=== PATIENT | female | born 1980 | race Caucasian/White ===

== ENCOUNTER 2017-09-21 12:10 | Emergency (ER) | payer BC ==
[2017-09-21] MEDS ORDERED: SODIUM CHLORIDE 0.9% 500 ML IV ONE (12:54)
--- NOTE | 2017-09-21 12:59 | ED ---
General Adult HPI - General Chief complaint: Recheck/Abnormal Lab/Rx Stated complaint: dizziness, chest pain, sob, Hx anemia Time Seen by Provider: 09/21/17 12:36 Source: patient Mode of arrival: wheelchair Limitations: no limitations - History of Present Illness Initial comments: Patient is a 37 year old female with a history of heavy, irregular menstrual periods who presents with a chief complaint of dizziness and anemia. Patient states that she has a hemoglobin that is usually around 7 secondary to chronic anemia from heavy periods. Patient states that she is currently on day 5 of her period and this has been particularly heavy. The patient states that she felt dizzy and lightheaded this morning. She is tachycardic at baseline however she states that at home she was about 138 bpm. Patient denies any other symptoms at this time and is concerned that her blood count might be low. - Related Data Home Medications Medication Instructions Recorded Confirmed Cholecalciferol [Vitamin D3] 1,000 unit PO DAILY 09/21/17 09/21/17 L.acidoph,Paracasei, B.lactis 1 cap PO DAILY 09/21/17 09/21/17 [Probiotic] Multivitamins, Thera [Multivitamin 1 tab PO DAILY 09/21/17 09/21/17 (formulary)] Ondansetron HCl [Zofran] 4 mg PO Q8H PRN 09/21/17 09/21/17 Thyroid Supplement 1 tab PO DAILY 09/21/17 09/21/17 Allergies Allergy/AdvReac Type Severity Reaction Status Date / Time levofloxacin [From Levaquin] AdvReac Nausea & Verified 09/21/17 13:17 Vomiting fruit Allergy Unknown Uncoded 09/21/17 13:17 grains Allergy Unknown Uncoded 09/21/17 13:17 sugar Allergy Unknown Uncoded 09/21/17 13:17 Review of Systems ROS Statement: Those systems with pertinent positive or pertinent negative responses have been documented in the HPI. ROS Other: All systems not noted in ROS Statement are negative. Constitutional: Reports: weakness Hematological/Lymphatic: Reports: as per HPI Past Medical History Past Medical History: Thyroid Disorder Additional Past Medical History / Comment(s): Chronic anemia due to fibroids History of Any Multi-Drug Resistant Organisms: None Reported Past Surgical History: Section Past Psychological History: No Psychological Hx Reported Smoking Status: Never smoker Past Alcohol Use History: None Reported Past Drug Use History: None Reported General Exam Limitations: no limitations General appearance: alert, in no apparent distress Head exam: Present: atraumatic, normocephalic Eye exam: Present: other (conjuntival pallor ) ENT exam: Present: mucous membranes moist, other (mucous membrains appear pale ) Neck exam: Present: normal inspection Respiratory exam: Present: normal lung sounds bilaterally. Absent: respiratory distress, wheezes Cardiovascular Exam: Present: normal rhythm, tachycardia GI/Abdominal exam: Present: soft. Absent: distended, tenderness Rectal exam: Present: deferred Extremities exam: Present: normal inspection Back exam: Present: normal inspection Neurological exam: Present: alert, oriented X3 Psychiatric exam: Present: normal affect, normal mood Skin exam: Present: warm, dry, intact, pallor Course Vital Signs 09/21/17 09/21/17 09/21/17 12:29 13:22 14:25 Temperature 99.3 F 98.4 F Pulse Rate 110 H 103 H 97 Respiratory 20 18 18 Rate Blood Pressure 137/70 124/64 117/68 O2 Sat by Pulse 97 100 100 Oximetry 09/21/17 09/21/17 09/21/17 14:44 14:54 15:24 Temperature 97.8 F 98.1 F 98.0 F Pulse Rate 91 82 88 Respiratory 18 18 18 Rate Blood Pressure 115/67 115/59 112/65 O2 Sat by Pulse 100 100 100 Oximetry 09/21/17 09/21/17 09/21/17 16:50 16:56 17:06 Temperature 98.5 F 98.5 F 98.4 F Pulse Rate 92 90 81 Respiratory 18 18 18 Rate Blood Pressure 107/55 106/56 105/56 O2 Sat by Pulse 100 99 Oximetry 09/21/17 09/21/17 17:36 19:15 Temperature 98.2 F 98.2 F Pulse Rate 79 89 Respiratory 18 18 Rate Blood Pressure 101/57 110/57 O2 Sat by Pulse 100 Oximetry Medical Decision Making - Medical Decision Making Patient presents with a chief complaint of dizziness and lightheadedness. She has a history of anemia. Initial evaluation shows tachycardia with otherwise stable vital signs. Patient appears very pale. Patient will be evaluated with basic labs, type and screen. Patient given 500 mL of fluid. I discussed the possibility of a blood transfusion with the patient. She is agreeable with needed. EKG performed at 1313 shows normal sinus rhythm with a rate of 100 bpm. EKG is otherwise unremarkable. Lab evaluation preliminarily shows a hemoglobin of 6.8 though I believe this to be lower as patient is having active vaginal bleeding. I discussed transfusion with the patient again, she is agreeable. Wrists and benefits were discussed. Patient will be given 2 units of packed red blood cells. 4:10 PM Patient re-evaluated after initial unit of PRBC's, patient appears well and is feeling better. her color is improved. will continue to monitor. 7:55 PM Patient reevaluated she states that she is feeling better. Repeat hemoglobin is 8.7. At this time, patient is stable for discharge. She is instructed to follow up with primary care and [employer] [employer] in 1-2 days. Return to the emergency department if symptoms worsen or change. - Lab Data Result diagrams: 09/21/17 19:20 09/21/17 13:10 Lab Results 09/21/17 09/21/17 09/21/17 Range/Units 13:10 13:10 13:10 WBC 4.7 (3.8-10.6) k/uL RBC 3.70 L (3.80-5.40) m/uL Hgb 6.8 L* (11.4-16.0) gm/dL Hct 24.8 L (34.0-46.0) % MCV 67.0 L (80.0-100.0) fL MCH 18.4 L (25.0-35.0) pg MCHC 27.5 L (31.0-37.0) g/dL RDW 16.1 H (11.5-15.5) % Plt Count 152 (150-450) k/uL Neutrophils % 82 % Lymphocytes % 13 % Monocytes % 3 % Eosinophils % 0 % Basophils % 0 % Neutrophils # 3.9 (1.3-7.7) k/uL Lymphocytes # 0.6 L (1.0-4.8) k/uL Monocytes # 0.1 (0-1.0) k/uL Eosinophils # 0.0 (0-0.7) k/uL Basophils # 0.0 (0-0.2) k/uL Hypochromasia Marked Poikilocytosis Slight Anisocytosis Slight Microcytosis Marked Sodium 143 (137-145) mmol/L Potassium 3.9 (3.5-5.1) mmol/L Chloride 104 (98-107) mmol/L Carbon Dioxide 22 (22-30) mmol/L Anion Gap 17 mmol/L BUN 9 (7-17) mg/dL Creatinine 0.36 L (0.52-1.04) mg/dL Est GFR (CKD-EPI)AfAm >90 (>60 ml/min/1.73 sqM) Est GFR (CKD-EPI)NonAf >90 (>60 ml/min/1.73 sqM) Glucose 85 (74-99) mg/dL Calcium 8.9 (8.4-10.2) mg/dL Blood Type O Positive Blood Type Recheck No Antibody Screen NEGATIVE Crossmatch See Detail Spec Expiration Date 09/24/2017 - 230909/21/17 Range/Units 19:20 WBC 5.6 (3.8-10.6) k/uL RBC 4.21 (3.80-5.40) m/uL Hgb 8.7 L D (11.4-16.0) gm/dL Hct 29.7 L (34.0-46.0) % MCV 70.7 L (80.0-100.0) fL MCH 20.8 L (25.0-35.0) pg MCHC 29.4 L (31.0-37.0) g/dL RDW 18.3 H (11.5-15.5) % Plt Count 140 L (150-450) k/uL Neutrophils % 74 % Lymphocytes % 20 % Monocytes % 4 % Eosinophils % 0 % Basophils % 1 % Neutrophils # 4.2 (1.3-7.7) k/uL Lymphocytes # 1.1 (1.0-4.8) k/uL Monocytes # 0.2 (0-1.0) k/uL Eosinophils # 0.0 (0-0.7) k/uL Basophils # 0.0 (0-0.2) k/uL Hypochromasia Marked Poikilocytosis Marked Anisocytosis Slight Microcytosis Marked Sodium (137-145) mmol/L Potassium (3.5-5.1) mmol/L Chloride (98-107) mmol/L Carbon Dioxide (22-30) mmol/L Anion Gap mmol/L BUN (7-17) mg/dL Creatinine (0.52-1.04) mg/dL Est GFR (CKD-EPI)AfAm (>60 ml/min/1.73 sqM) Est GFR (CKD-EPI)NonAf (>60 ml/min/1.73 sqM) Glucose (74-99) mg/dL Calcium (8.4-10.2) mg/dL Blood Type Blood Type Recheck Antibody Screen Crossmatch Spec Expiration Date Disposition Clinical Impression: Anemia, Menorrhagia with irregular cycle Disposition: HOME SELF-CARE Condition: Good Is patient prescribed a controlled substance at d/c from ED?: No Referrals: Nonstaff,Physician [REFERRING] - 1-2 days Mady Hutchins MD [STAFF PHYSICIAN] - 1-2 days
[2017-09-21 13:25] LABS: Anisocytosis Slight; Basophils % (A) 0 %; Eosinophils % (A) 0 %; HCT 24.8 % (34.0-46.0); Hypochromasia Marked; Lymphocytes # (A) 0.6 k/uL (1.0-4.8); Lymphocytes % (A) 13 %; MCH 18.4 pg (25.0-35.0); MCHC 27.5 g/dL (31.0-37.0); Mean Platelet Volume 9.1; Microcytosis Marked; Monocytes # (A) 0.1 k/uL (0-1.0); Monocytes % (A) 3 %; Neutrophils # (A) 3.9 k/uL (1.3-7.7); Neutrophils % (A) 82 %; Platelet Count 152 k/uL (150-450); Poikilocytosis Slight; RDW 16.1 % (11.5-15.5); WBC 4.7 k/uL (3.8-10.6)
[2017-09-21 13:28] LABS: HGB 6.8 gm/dL (11.4-16.0)
[2017-09-21 13:32] VITALS: RESP 18
[2017-09-21 13:36] LABS: Anion Gap 17 mmol/L; Blood Urea Nitrogen 9 mg/dL (7-17); Calcium 8.9 mg/dL (8.4-10.2); Carbon Dioxide 22 mmol/L (22-30); Chloride 104 mmol/L (98-107); Glucose 85 mg/dL (74-99); Potassium 3.9 mmol/L (3.5-5.1); Sodium 143 mmol/L (137-145)
[2017-09-21 18:19] VITALS: TEMP 98.2
[2017-09-21 19:32] LABS: Anisocytosis Slight; Basophils % (A) 1 %; Eosinophils % (A) 0 %; HCT 29.7 % (34.0-46.0); Hypochromasia Marked; Lymphocytes # (A) 1.1 k/uL (1.0-4.8); Lymphocytes % (A) 20 %; MCH 20.8 pg (25.0-35.0); MCHC 29.4 g/dL (31.0-37.0); MCV 70.7 fL (80.0-100.0); Mean Platelet Volume 9.6; Microcytosis Marked; Monocytes # (A) 0.2 k/uL (0-1.0); Monocytes % (A) 4 %; Neutrophils # (A) 4.2 k/uL (1.3-7.7); Neutrophils % (A) 74 %; Platelet Count 140 k/uL (150-450); Poikilocytosis Marked; RBC 4.21 m/uL (3.80-5.40); RDW 18.3 % (11.5-15.5); WBC 5.6 k/uL (3.8-10.6)
[2017-09-21 19:38] LABS: HGB 8.7 gm/dL (11.4-16.0)
[2017-09-21 20:21] VITALS: BP 104/72; PULSE 72
== END 2017-09-21 20:21 | disposition home or self-care (01) ==
LOC: EC 12:10
DX: D64.9 Anemia, unspecified (principal); N92.1 Excessive and frequent menstruation with irregular cycle; E07.9 Disorder of thyroid, unspecified; Z79.899 Other long term (current) drug therapy; Z88.1 Allergy status to other antibiotic agents; Z91.018 Allergy to other foods
CPT/HCPCS: 99285; 36415; 93005; 86900; 86901; 80048; 85025; 86850; 86920; P9016

== ENCOUNTER 2017-10-12 16:50 | Emergency (ER) | payer BC ==
[2017-10-12 17:17] VITALS: RESP 18
[2017-10-12] MEDS ORDERED: SODIUM CHLORIDE 0.9% 1,000 ML IV ONE (17:39)
--- NOTE | 2017-10-12 17:44 | ED ---
Female Urogenital HPI - General Chief complaint: Vaginal Bleeding Stated complaint: Vaginal Bleeding Time Seen by Provider: 10/12/17 17:24 Source: patient, RN notes reviewed, old records reviewed Mode of arrival: ambulatory Limitations: no limitations - History of Present Illness Initial comments: 37-year-old female presents emergency Department chief complaint of heavy vaginal bleeding for the past 2 hours. She has a history of menorrhagia. She is a G5 female. Her BIOLOGY SPECIALIST is Dr. Edwards, after her last heavy menstrual cycle she was started on progesterone. Patient states that she's been taking over the past month. Patient states that she was seen in the emergency department 3 weeks ago for similar complaints having heavy bleeding. She was tired and fatigue that time she did receive 2 units of PRBCs. Patient states that she's been passing clots the size of her fist for the past 2 hours. Patient denies any recent fever, chills, chest pain, back pain, abdominal pain, nausea vomiting, numbness or tingling, dysuria or hematuria, constipation or diarrhea, headaches or visual changes, or any other current symptoms. - Related Data Home Medications Medication Instructions Recorded Confirmed L.acidoph,Paracasei, B.lactis 1 cap PO DAILY 09/21/17 10/12/17 [Probiotic] Multivitamins, Thera [Multivitamin 1 tab PO DAILY 09/21/17 10/12/17 (formulary)] Ferrous Sulfate [Feosol] 325 mg PO DAILY 10/12/17 10/12/17 Iodine Drops 1 dose PO DAILY 10/12/17 10/12/17 Vitamin D3 Drops 1 dose PO DAILY 10/12/17 10/12/17 Allergies Allergy/AdvReac Type Severity Reaction Status Date / Time levofloxacin [From Levaquin] AdvReac Nausea & Verified 10/12/17 19:21 Vomiting fruit Allergy Unknown Uncoded 10/12/17 17:17 grains Allergy Unknown Uncoded 10/12/17 17:17 sugar Allergy Unknown Uncoded 10/12/17 17:17 Review of Systems ROS Statement: Those systems with pertinent positive or pertinent negative responses have been documented in the HPI. ROS Other: All systems not noted in ROS Statement are negative. Past Medical History Past Medical History: Thyroid Disorder Additional Past Medical History / Comment(s): Chronic anemia due to fibroids History of Any Multi-Drug Resistant Organisms: None Reported Past Surgical History: Section Past Psychological History: No Psychological Hx Reported Smoking Status: Never smoker Past Alcohol Use History: None Reported Past Drug Use History: None Reported General Exam - General Exam Comments Initial Comments: This patient's a 37-year-old female. Alert and oriented. No significant distress. Mildy pale. Limitations: no limitations General appearance: alert, in no apparent distress Head exam: Present: atraumatic, normocephalic, normal inspection Eye exam: Present: normal appearance, PERRL, EOMI. Absent: scleral icterus, conjunctival injection, periorbital swelling ENT exam: Present: normal exam, mucous membranes moist Neck exam: Present: normal inspection. Absent: tenderness, meningismus, lymphadenopathy Respiratory exam: Present: normal lung sounds bilaterally. Absent: respiratory distress, wheezes, rales, rhonchi, stridor Cardiovascular Exam: Present: regular rate, normal rhythm, normal heart sounds. Absent: systolic murmur, diastolic murmur, rubs, gallop, clicks GI/Abdominal exam: Present: soft, normal bowel sounds. Absent: distended, tenderness, guarding, rebound, rigid Extremities exam: Present: normal inspection, full ROM, normal capillary refill. Absent: tenderness, pedal edema, joint swelling, calf tenderness Back exam: Present: normal inspection Neurological exam: Present: alert, oriented X3, CN II-XII intact Psychiatric exam: Present: normal affect, normal mood Skin exam: Present: warm, dry, intact, normal color. Absent: rash Course Vital Signs 10/12/17 10/12/17 10/12/17 17:14 19:21 20:10 Temperature 99.4 F 98.0 F Pulse Rate 93 87 88 Respiratory 18 18 18 Rate Blood Pressure 128/82 134/78 115/69 O2 Sat by Pulse 100 98 100 Oximetry Medical Decision Making - Medical Decision Making 37-year-old female presents emergency Department chief complaint of heavy vaginal bleeding for the past 2 hours. She has a history of menorrhagia. She is a G5 female. Patient states that she's been passing clots the size of her fist for the past 2 hours. At this time Hgb is 9.8, an increase from previous Hcg of 8.5. She is actively bleeding and this may go down significantly. US shows evidence of uterine fibroid. I discussed that patient does not need a transfusion at this time, however she needs to recheck CBC in a few days to ensure Hgb is stable. Patient agrees to treatment plan and will comply. - Lab Data Result diagrams: 10/12/17 18:15 10/12/17 18:15 Lab Results 10/12/17 10/12/17 10/12/17 Range/Units 18:15 18:15 18:15 WBC 4.8 (3.8-10.6) k/uL RBC 4.66 (3.80-5.40) m/uL Hgb 9.8 L (11.4-16.0) gm/dL Hct 32.7 L (34.0-46.0) % MCV 70.1 L (80.0-100.0) fL MCH 21.0 L (25.0-35.0) pg MCHC 29.9 L (31.0-37.0) g/dL RDW 19.7 H (11.5-15.5) % Plt Count 237 (150-450) k/uL Neutrophils % 72 % Lymphocytes % 19 % Monocytes % 6 % Eosinophils % 0 % Basophils % 1 % Neutrophils # 3.5 (1.3-7.7) k/uL Lymphocytes # 0.9 L (1.0-4.8) k/uL Monocytes # 0.3 (0-1.0) k/uL Eosinophils # 0.0 (0-0.7) k/uL Basophils # 0.0 (0-0.2) k/uL Hypochromasia Marked Poikilocytosis Slight Anisocytosis Slight Microcytosis Marked PT (9.0-12.0) sec INR (<1.2) APTT (22.0-30.0) sec Sodium 144 (137-145) mmol/L Potassium 3.6 (3.5-5.1) mmol/L Chloride 105 (98-107) mmol/L Carbon Dioxide 23 (22-30) mmol/L Anion Gap 16 mmol/L BUN 6 L (7-17) mg/dL Creatinine 0.40 L (0.52-1.04) mg/dL Est GFR (CKD-EPI)AfAm >90 (>60 ml/min/1.73 sqM) Est GFR (CKD-EPI)NonAf >90 (>60 ml/min/1.73 sqM) Glucose 102 H (74-99) mg/dL Calcium 9.7 (8.4-10.2) mg/dL Total Bilirubin 0.3 (0.2-1.3) mg/dL AST 24 (14-36) U/L ALT 33 (9-52) U/L Alkaline Phosphatase 45 (38-126) U/L Total Protein 7.2 (6.3-8.2) g/dL Albumin 4.8 (3.5-5.0) g/dL Urine HCG, Qual Not Detected (Not Detectd) Blood Type Blood Type Recheck Antibody Screen Spec Expiration Date 10/12/17 10/12/17 Range/Units 18:15 18:15 WBC (3.8-10.6) k/uL RBC (3.80-5.40) m/uL Hgb (11.4-16.0) gm/dL Hct (34.0-46.0) % MCV (80.0-100.0) fL MCH (25.0-35.0) pg MCHC (31.0-37.0) g/dL RDW (11.5-15.5) % Plt Count (150-450) k/uL Neutrophils % % Lymphocytes % % Monocytes % % Eosinophils % % Basophils % % Neutrophils # (1.3-7.7) k/uL Lymphocytes # (1.0-4.8) k/uL Monocytes # (0-1.0) k/uL Eosinophils # (0-0.7) k/uL Basophils # (0-0.2) k/uL Hypochromasia Poikilocytosis Anisocytosis Microcytosis PT 10.1 (9.0-12.0) sec INR 1.0 (<1.2) APTT 24.0 (22.0-30.0) sec Sodium (137-145) mmol/L Potassium (3.5-5.1) mmol/L Chloride (98-107) mmol/L Carbon Dioxide (22-30) mmol/L Anion Gap mmol/L BUN (7-17) mg/dL Creatinine (0.52-1.04) mg/dL Est GFR (CKD-EPI)AfAm (>60 ml/min/1.73 sqM) Est GFR (CKD-EPI)NonAf (>60 ml/min/1.73 sqM) Glucose (74-99) mg/dL Calcium (8.4-10.2) mg/dL Total Bilirubin (0.2-1.3) mg/dL AST (14-36) U/L ALT (9-52) U/L Alkaline Phosphatase (38-126) U/L Total Protein (6.3-8.2) g/dL Albumin (3.5-5.0) g/dL Urine HCG, Qual (Not Detectd) Blood Type O Positive Blood Type Recheck No Antibody Screen NEGATIVE Spec Expiration Date 10/15/2017 - 2315 - Radiology Data Radiology results: report reviewed US is positiev for Uterine fibroid. No evidence of ovarian torsion or mass. Disposition Clinical Impression: Menorrhagia with irregular cycle Disposition: HOME SELF-CARE Condition: Good Instructions: Menorrhagia (ED) Additional Instructions: Patient advised to repeat your CBC within the next couple of days. Return to the emergency department if any alarming signs or symptoms occur. Is patient prescribed a controlled substance at d/c from ED?: No When asked, does pt state using other controlled substances?: No If prescribed controlled substance>3 days was MAPS reviewed?: No If opioid is for acute pain is fill amount 7 days or less?: No If Rx opioid, was Start Talking consent form obtained?: No Referrals: Yanna Crane MD [Primary Care Provider] - 1-2 days Time of Disposition: 20:06
[2017-10-12 18:28] LABS: Anisocytosis Slight; Basophils % (A) 1 %; Eosinophils % (A) 0 %; HCT 32.7 % (34.0-46.0); HGB 9.8 gm/dL (11.4-16.0); Hypochromasia Marked; Lymphocytes # (A) 0.9 k/uL (1.0-4.8); Lymphocytes % (A) 19 %; MCHC 29.9 g/dL (31.0-37.0); MCV 70.1 fL (80.0-100.0); Mean Platelet Volume 8.6; Microcytosis Marked; Monocytes # (A) 0.3 k/uL (0-1.0); Monocytes % (A) 6 %; Neutrophils # (A) 3.5 k/uL (1.3-7.7); Neutrophils % (A) 72 %; Platelet Count 237 k/uL (150-450); Poikilocytosis Slight; RBC 4.66 m/uL (3.80-5.40); RDW 19.7 % (11.5-15.5); WBC 4.8 k/uL (3.8-10.6)
[2017-10-12 18:36] LABS: Prothrombin Time 10.1 sec (9.0-12.0)
[2017-10-12 18:37] LABS: ALT 33 U/L (9-52); AST 24 U/L (14-36); Albumin 4.8 g/dL (3.5-5.0); Alkaline Phosphatase 45 U/L (38-126); Anion Gap 16 mmol/L; Blood Urea Nitrogen 6 mg/dL (7-17); Calcium 9.7 mg/dL (8.4-10.2); Carbon Dioxide 23 mmol/L (22-30); Chloride 105 mmol/L (98-107); Glucose 102 mg/dL (74-99); Potassium 3.6 mmol/L (3.5-5.1); Sodium 144 mmol/L (137-145); Total Bilirubin 0.3 mg/dL (0.2-1.3); Total Protein 7.2 g/dL (6.3-8.2)
--- NOTE | 2017-10-12 19:42 | US ---
EXAMINATION TYPE: US transvaginal DATE OF EXAM: 10/12/2017 COMPARISON: NONE CLINICAL HISTORY: Pain. Heavy bleeding TECHNIQUE: Transvaginal (TV). EXAM MEASUREMENTS: Uterus: 10.5 x 6.7 x 6.8 cm Endometrial Stripe: 1.2 cm 1. Uterus: Anteverted Fibroid seen measuring 4.5 x 4.8 x 4.6 cm 2. Endometrium: wnl 3. Right Ovary: Obscured by overlying bowel gas 4. Left Ovary: Obscured by overlying bowel gas 5. Bilateral Adnexa: wnl 6. Posterior cul-de-sac: wnl Fibroid seen measuring 4.5 x 4.8 x 4.6 cm. IMPRESSION: 1. Uterine fibroid
[2017-10-12 20:11] VITALS: BP 115/69; PULSE 88; TEMP 98
== END 2017-10-12 20:19 | disposition home or self-care (01) ==
LOC: EC 16:50
DX: N92.0 Excessive and frequent menstruation with regular cycle (principal); D64.9 Anemia, unspecified; Z87.42 Personal history of other diseases of the female genital tract; Z79.899 Other long term (current) drug therapy; Z91.018 Allergy to other foods; Z88.1 Allergy status to other antibiotic agents
CPT/HCPCS: 36415; 76830; 80053; 81025; 85025; 85610; 85730; 86850; 86900; 86901; 96360; 99284

== ENCOUNTER 2018-01-08 15:39 | Emergency (ER) | payer BC ==
[2018-01-08 15:57] VITALS: RESP 18
[2018-01-08] MEDS ORDERED: SODIUM CHLORIDE 0.9% 1,000 ML IV STA ×2 (16:40→18:14)
--- NOTE | 2018-01-08 16:43 | ED ---
General Adult HPI - General Chief complaint: Abdominal Pain Stated complaint: panic attack Time Seen by Provider: 01/08/18 16:26 Source: patient, RN notes reviewed Mode of arrival: wheelchair Limitations: no limitations - History of Present Illness Initial comments: Patient is a 37-year-old female status post hysterectomy 8 weeks, presented to the emergency room today with multiple complaints. Patient does admit that she uses not feeling right over the last 2 weeks. She states that she's noticed some difficulty using some drinks. She states she feels like her throat become swollen. She states she follow-up the family doctor was started on Prilosec. She states this is how. States still experiencing these symptoms. States unable to follow up with her GI specialist as they are out of town. Patient also missed feeling constipated last 2 weeks she's been taking suppository with little relief the symptoms. States she had a small bowel movement 2 days ago. Patient denies significant complaints or symptoms currently. Patient denies any recent fever, chills, shortness of breath, chest pain, back pain, numbness or tingling, dysuria or hematuria, diarrhea, headaches or visual changes, or any other complaints. - Related Data Allergies Allergy/AdvReac Type Severity Reaction Status Date / Time levofloxacin [From Levaquin] AdvReac Nausea & Verified 01/08/18 15:57 Vomiting fruit Allergy Unknown Uncoded 01/08/18 15:57 grains Allergy Unknown Uncoded 01/08/18 15:57 sugar Allergy Unknown Uncoded 01/08/18 15:57 Review of Systems ROS Statement: Those systems with pertinent positive or pertinent negative responses have been documented in the HPI. ROS Other: All systems not noted in ROS Statement are negative. Past Medical History Past Medical History: Thyroid Disorder Additional Past Medical History / Comment(s): Chronic anemia due to fibroids History of Any Multi-Drug Resistant Organisms: None Reported Past Surgical History: Section, Hysterectomy Past Psychological History: No Psychological Hx Reported Smoking Status: Never smoker Past Alcohol Use History: None Reported Past Drug Use History: None Reported General Exam - General Exam Comments Initial Comments: General: The patient is awake and alert, in no distress, and does not appear acutely ill. Eye: Pupils are equal, round and reactive to light, extra-ocular movements are intact. No nystagmus. There is normal conjunctiva bilaterally. No signs of icterus. Ears, nose, mouth and throat: There are moist mucous membranes and no oral lesions. Neck: The neck is supple, there is no tenderness or JVD. Cardiovascular: There is a regular rate and rhythm. No murmur, rub or gallop is appreciated. Respiratory: Lungs are clear to auscultation, respirations are non-labored, breath sounds are equal. No wheezes, stridor, rales, or rhonchi. Gastrointestinal: Soft, non-distended, non-tender abdomen without masses or organomegaly noted. There is no rebound or guarding present. No CVA tenderness. Bowel sounds are unremarkable. Musculoskeletal: Normal ROM, no tenderness. Strength 5/5. Sensation intact. Pulses equal bilaterally 2+. Neurological: A&O x 3. CN II-XII intact, There are no obvious motor or sensory deficits. Coordination appears grossly intact. Speech is normal. Skin: Skin is warm and dry and no rashes or lesions are noted. Psychiatric: Cooperative, appropriate mood & affect, normal judgment. Limitations: no limitations Course Vital Signs 01/08/18 01/08/18 15:55 18:09 Temperature 98.5 F 98.8 F Pulse Rate 94 80 Respiratory 18 18 Rate Blood Pressure 117/79 104/58 O2 Sat by Pulse 100 98 Oximetry - Reevaluation(s) Reevaluation #1: 01/08/18 16:43 -year-old female status post hysterectomy 2 weeks. Patient presenting for some difficulty with swallowing. She states feels like her throat swelling. Patient will have blood work obtained EKG. Patient is PERC negative. No shortness breath at this time. She states symptoms are increased after eating and drinking. Patient also admits to difficulty with bowel movements. Will have x-ray of abdomen also chest. EKG Findings - EKG Comments: EKG Findings:: EKG performed at 1651: Shows normal sinus rhythm at 77 bpm appear LA interval 164. QRS 96. QT/QTc is 400/452. No acute ST changes. Medical Decision Making - Medical Decision Making Patient's labs been reviewed. Patient's perk negative. Patient's resting comfortably. He said no shortness of breath here. She describes symptoms of esophageal spasm when she eats and drinks. She is trying [facility] with [facility]. Patient will be given information for GI here in town as well if she would like to try to follow-up with them. Patient's vitals are stable. Patient's x-rays are unremarkable. Patient will be discharged home. - Lab Data Result diagrams: 01/08/18 16:40 01/08/18 16:40 Lab Results 01/08/18 01/08/18 01/08/18 Range/Units 16:40 16:40 16:40 WBC 4.4 (3.8-10.6) k/uL RBC 5.24 (3.80-5.40) m/uL Hgb 11.1 L (11.4-16.0) gm/dL Hct 37.7 (34.0-46.0) % MCV 71.9 L (80.0-100.0) fL MCH 21.1 L (25.0-35.0) pg MCHC 29.3 L (31.0-37.0) g/dL RDW 16.6 H (11.5-15.5) % Plt Count 175 (150-450) k/uL Neutrophils % 63 % Lymphocytes % 29 % Monocytes % 5 % Eosinophils % 1 % Basophils % 0 % Neutrophils # 2.8 (1.3-7.7) k/uL Lymphocytes # 1.3 (1.0-4.8) k/uL Monocytes # 0.2 (0-1.0) k/uL Eosinophils # 0.0 (0-0.7) k/uL Basophils # 0.0 (0-0.2) k/uL Hypochromasia Marked Anisocytosis Slight Microcytosis Moderate Sodium 140 (137-145) mmol/L Potassium 3.6 (3.5-5.1) mmol/L Chloride 101 (98-107) mmol/L Carbon Dioxide 20 L (22-30) mmol/L Anion Gap 19 mmol/L BUN 9 (7-17) mg/dL Creatinine 0.48 L (0.52-1.04) mg/dL Est GFR (CKD-EPI)AfAm >90 (>60 ml/min/1.73 sqM) Est GFR (CKD-EPI)NonAf >90 (>60 ml/min/1.73 sqM) Glucose 78 (74-99) mg/dL Calcium 9.4 (8.4-10.2) mg/dL Total Bilirubin 0.5 (0.2-1.3) mg/dL AST 18 (14-36) U/L ALT 25 (9-52) U/L Alkaline Phosphatase 43 (38-126) U/L Total Creatine Kinase 33 (30-135) U/L CK-MB (CK-2) 0.3 (0.0-2.4) ng/mL CK-MB (CK-2) Rel Index 0.9 Troponin I <0.012 (0.000-0.034) ng/mL Total Protein 7.5 (6.3-8.2) g/dL Albumin 4.7 (3.5-5.0) g/dL Urine Color Urine Appearance (Clear) Urine pH (5.0-8.0) Ur Specific [place] (1.001-1.035) Urine Protein (Negative) Urine Glucose (UA) (Negative) Urine Ketones (Negative) Urine Blood (Negative) Urine Nitrite (Negative) Urine Bilirubin (Negative) Urine Urobilinogen (<2.0) mg/dL Ur Leukocyte Esterase (Negative) 01/08/18 Range/Units 16:40 WBC (3.8-10.6) k/uL RBC (3.80-5.40) m/uL Hgb (11.4-16.0) gm/dL Hct (34.0-46.0) % MCV (80.0-100.0) fL MCH (25.0-35.0) pg MCHC (31.0-37.0) g/dL RDW (11.5-15.5) % Plt Count (150-450) k/uL Neutrophils % % Lymphocytes % % Monocytes % % Eosinophils % % Basophils % % Neutrophils # (1.3-7.7) k/uL Lymphocytes # (1.0-4.8) k/uL Monocytes # (0-1.0) k/uL Eosinophils # (0-0.7) k/uL Basophils # (0-0.2) k/uL Hypochromasia Anisocytosis Microcytosis Sodium (137-145) mmol/L Potassium (3.5-5.1) mmol/L Chloride (98-107) mmol/L Carbon Dioxide (22-30) mmol/L Anion Gap mmol/L BUN (7-17) mg/dL Creatinine (0.52-1.04) mg/dL Est GFR (CKD-EPI)AfAm (>60 ml/min/1.73 sqM) Est GFR (CKD-EPI)NonAf (>60 ml/min/1.73 sqM) Glucose (74-99) mg/dL Calcium (8.4-10.2) mg/dL Total Bilirubin (0.2-1.3) mg/dL AST (14-36) U/L ALT (9-52) U/L Alkaline Phosphatase (38-126) U/L Total Creatine Kinase (30-135) U/L CK-MB (CK-2) (0.0-2.4) ng/mL CK-MB (CK-2) Rel Index Troponin I (0.000-0.034) ng/mL Total Protein (6.3-8.2) g/dL Albumin (3.5-5.0) g/dL Urine Color Colorless Urine Appearance Clear (Clear) Urine pH 5.0 (5.0-8.0) Ur Specific [place] 1.002 (1.001-1.035) Urine Protein Negative (Negative) Urine Glucose (UA) Negative (Negative) Urine Ketones 2+ H (Negative) Urine Blood Negative (Negative) Urine Nitrite Negative (Negative) Urine Bilirubin Negative (Negative) Urine Urobilinogen <2.0 (<2.0) mg/dL Ur Leukocyte Esterase Negative (Negative) Disposition Clinical Impression: Esophageal spasm Disposition: HOME SELF-CARE Condition: Good Instructions: Esophageal Spasm (ED) Additional Instructions: Please use medication as discussed. Please follow-up with GI/family doctor in the next 2 days. Please return to emergency room if the symptoms increase or worsen or for any other concerns. Is patient prescribed a controlled substance at d/c from ED?: No Referrals: None,Stated [Primary Care Provider] - 1-2 days Chelle Mari MD [STAFF PHYSICIAN] - 1-2 days Time of Disposition: 18:17
[2018-01-08 16:52] LABS: Anisocytosis Slight; Basophils % (A) 0 %; Eosinophils % (A) 1 %; HCT 37.7 % (34.0-46.0); HGB 11.1 gm/dL (11.4-16.0); Hypochromasia Marked; Lymphocytes # (A) 1.3 k/uL (1.0-4.8); Lymphocytes % (A) 29 %; MCH 21.1 pg (25.0-35.0); MCHC 29.3 g/dL (31.0-37.0); MCV 71.9 fL (80.0-100.0); Mean Platelet Volume 7.6; Microcytosis Moderate; Monocytes # (A) 0.2 k/uL (0-1.0); Monocytes % (A) 5 %; Neutrophils # (A) 2.8 k/uL (1.3-7.7); Neutrophils % (A) 63 %; Platelet Count 175 k/uL (150-450); RBC 5.24 m/uL (3.80-5.40); RDW 16.6 % (11.5-15.5); WBC 4.4 k/uL (3.8-10.6)
[2018-01-08 16:56] LABS: Appearance,Urine Clear (Clear); Bilirubin,Urine Negative (Negative); Blood,Urine Negative (Negative); Color,Urine Colorless; Glucose,Urine (UA) Negative (Negative); Ketones,Urine 2+ (Negative); Leukocyte Esterase,Urine Negative (Negative); Nitrite,Urine Negative (Negative); Protein,Urine Negative (Negative); Specific Gravity,Urine 1.002 (1.001-1.035); Urobilinogen,Urine <2.0 mg/dL (<2.0)
[2018-01-08 17:03] LABS: ALT 25 U/L (9-52); AST 18 U/L (14-36); Albumin 4.7 g/dL (3.5-5.0); Alkaline Phosphatase 43 U/L (38-126); Anion Gap 19 mmol/L; Blood Urea Nitrogen 9 mg/dL (7-17); Calcium 9.4 mg/dL (8.4-10.2); Carbon Dioxide 20 mmol/L (22-30); Chloride 101 mmol/L (98-107); Glucose 78 mg/dL (74-99); Potassium 3.6 mmol/L (3.5-5.1); Sodium 140 mmol/L (137-145); Total Bilirubin 0.5 mg/dL (0.2-1.3); Total Protein 7.5 g/dL (6.3-8.2)
--- NOTE | 2018-01-08 17:15 | XR ---
EXAMINATION TYPE: XR chest 2V DATE OF EXAM: 01/08/2018 COMPARISON: None HISTORY: 37-year-old female with pain TECHNIQUE: PA and lateral views FINDINGS: The cardiomediastinal silhouette, aorta, and pulmonary vasculature are within normal limits. Some str mathew atelectasis in the lower lungs. Otherwise, lungs and pleural spaces are clear. IMPRESSION: No acute cardiopulmonary process.
--- NOTE | 2018-01-08 17:16 | XR ---
EXAMINATION TYPE: XR KUB DATE OF EXAM: 01/08/2018 CLINICAL DATA: 37 year-old female epigastric pain, PH[facility] COMPARISON: None FINDINGS: Lung bases are clear. No evidence for free intraperitoneal air. No dilated small bowel or air-fluid levels. Scattered air and stool seen throughout the colon extendi ng distally into the rectum. No significant stool burden. No suspicious calcifications identified. The curvature of the lumbar spine could be positional or due to scoliotic curvature. IMPRESSION: No evidence of bowel obstruction or free intraperitoneal air.
[2018-01-08 17:18] LABS: Creatine Kinase 33 U/L (30-135)
[2018-01-08 17:31] LABS: Creatine Kinase MB 0.3 ng/mL (0.0-2.4); Troponin I <0.012 ng/mL (0.000-0.034)
[2018-01-08 18:09] VITALS: BP 104/58; PULSE 80; TEMP 98.8
== END 2018-01-08 19:29 | disposition home or self-care (01) ==
LOC: EC 15:39
DX: K22.4 Dyskinesia of esophagus (principal); Z88.1 Allergy status to other antibiotic agents; Z91.018 Allergy to other foods; Z90.710 Acquired absence of both cervix and uterus
CPT/HCPCS: 36415; 71046; 74018; 80053; 81003; 82550; 82553; 84484; 85025; 93005; 96360; 96361; 99284

== ENCOUNTER 2019-06-15 22:41 | Emergency (ER) | payer BC ==
[2019-06-15] MEDS ORDERED: SODIUM CHLORIDE 0.9% 1,000 ML IV STA (23:19)
[2019-06-15 23:58] LABS: Basophils # (A) 0.1 k/uL (0-0.2); Basophils % (A) 2 %; Eosinophils # (A) 0.1 k/uL (0-0.7); Eosinophils % (A) 1 %; HCT 45.9 % (34.0-46.0); HGB 14.8 gm/dL (11.4-16.0); Lymphocytes # (A) 1.1 k/uL (1.0-4.8); Lymphocytes % (A) 17 %; MCH 31.2 pg (25.0-35.0); MCHC 32.3 g/dL (31.0-37.0); MCV 96.6 fL (80.0-100.0); Mean Platelet Volume 9.3; Monocytes # (A) 0.2 k/uL (0-1.0); Monocytes % (A) 4 %; Neutrophils % (A) 75 %; Platelet Count 166 k/uL (150-450); RBC 4.75 m/uL (3.80-5.40); RDW 12.6 % (11.5-15.5); WBC 6.6 k/uL (3.8-10.6)
[2019-06-16 00:02] LABS: Appearance,Urine Clear (Clear); Bacteria,Urine Occasional /hpf; Bilirubin,Urine Negative (Negative); Blood,Urine Trace (Negative); Color,Urine Yellow; Glucose,Urine (UA) Negative (Negative); Ketones,Urine 3+ (Negative); Leukocyte Esterase,Urine Trace (Negative); Mucus,Urine Few /hpf; Nitrite,Urine Negative (Negative); Protein,Urine Trace (Negative); RBC,Urine 3 /hpf (0-5); Specific Gravity,Urine 1.033 (1.001-1.035); Squamous Epithelial Cell,Urine 5 /hpf (0-4); WBC,Urine 1 /hpf (0-5)
[2019-06-16 00:10] LABS: ALT 37 U/L (4-34); AST 35 U/L (14-36); African American GFR (CKD) >90 (>60 ml/min/1.73 sqM); Albumin 4.8 g/dL (3.5-5.0); Alkaline Phosphatase 98 U/L (38-126); Anion Gap 13 mmol/L; Blood Urea Nitrogen 21 mg/dL (7-17); Calcium 9.1 mg/dL (8.4-10.2); Carbon Dioxide 24 mmol/L (22-30); Chloride 104 mmol/L (98-107); Glucose 92 mg/dL (74-99); Non-African American GFR(CKD) >90 (>60 ml/min/1.73 sqM); Potassium 4.1 mmol/L (3.5-5.1); Sodium 141 mmol/L (137-145); Total Bilirubin 0.4 mg/dL (0.2-1.3); Total Protein 7.6 g/dL (6.3-8.2)
[2019-06-16 00:14] LABS: Partial Thromboplastin Time 25.9 sec (22.0-30.0); Prothrombin Time 10.1 sec (9.0-12.0)
--- NOTE | 2019-06-16 00:39 | XR ---
EXAMINATION TYPE: XR chest 2V DATE OF EXAM: 06/16/2019 COMPARISON: 01/08/2018 HISTORY: Epigastric pain TECHNIQUE: FINDINGS: Heart and mediastinum are normal. Lungs are clear. Diaphragm is normal. Bony thorax is inta ct. There is mild thoracic dextroscoliosis. IMPRESSION: Normal chest. No change.
--- NOTE | 2019-06-16 01:00 | ED ---
General Adult HPI - General Chief complaint: Abdominal Pain Stated complaint: Hernia Time Seen by Provider: 06/15/19 22:54 Source: patient, RN notes reviewed, old records reviewed Mode of arrival: ambulatory Limitations: no limitations - History of Present Illness Initial comments: 39-year-old male patient with past history significant for anemia, status post hysterectomy presents to ED for acute complaints. Patient reports that she had some sharp abdominal pains earlier today which have since resolved. She also reports that when she is over a shower she spit up what appear to be some bright red blood. She does report that she was recently exposed to any illness by her children and was having waxing coughing for the last 10 days or so. Reports that she was previously having fevers but they've since resolved. Denies any other complaints at this time. Systemic: Pt denies fatigue, fever/chills, rash. Pt denies weakness, night sweats, weight loss. Neuro: Pt denies headache, visual disturbances, syncope or pre-syncope. HEENT: Pt denies ocular discharge or irritation, otalgia, rhinorrhea, pharyngitis or notable lymphadenopathy. Cardiopulmonary: Pt denies chest pain, SOB, heart palpitations, dyspnea on exertion. Abdominal/GI: Pt denies abdominal pain, n/v/d. : Pt denies dysuria, burning w/ urination, frequency/urgency. Denies new onset urinary or bowel incontinence. MSK: Pt denies myalgia, loss of strength or function in extremities. Neuro: Pt denies new onset weakness, paresthesias. - Related Data Allergies Allergy/AdvReac Type Severity Reaction Status Date / Time levofloxacin [From Levaquin] AdvReac Nausea & Verified 06/15/19 22:48 Vomiting fruit Allergy Unknown Uncoded 06/15/19 22:48 grains Allergy Unknown Uncoded 06/15/19 22:48 sugar Allergy Unknown Uncoded 06/15/19 22:48 Review of Systems ROS Statement: Those systems with pertinent positive or pertinent negative responses have been documented in the HPI. ROS Other: All systems not noted in ROS Statement are negative. Past Medical History Past Medical History: Thyroid Disorder Additional Past Medical History / Comment(s): Chronic anemia due to fibroids History of Any Multi-Drug Resistant Organisms: None Reported Past Surgical History: Section, Hysterectomy Past Psychological History: No Psychological Hx Reported Smoking Status: Never smoker Past Alcohol Use History: None Reported Past Drug Use History: None Reported General Exam - General Exam Comments Initial Comments: Constitutional: NAD, AOX3, Pt has pleasant affect. HEENT: NC/AT, trachea midline, neck supple, no lymphadenopathy. Posterior pharynx non erythematous, without exudates. External ears appear normal, without discharge. Mucous membranes moist. Eyes PERRLA, EOM intact. There is no scleral icterus. No pallor noted. Poor dentition noted. No active bleeding. Cardiopulmonary: RRR, no murmurs, rubs or gallops, no JVD noted. Lungs CTAB in anterior and posterior casper. No peripheral edema. Abdominal exam: Abdomen soft and non-distended. Abdomen non-tender to palpation in all 4 quadrants. Bowel sounds active in LLQ. No hepatosplenomegaly. No ecchymosis Neuro: CN II-XII grossly intact. No nuchal rigidity. No raccon eyes, no ruiz sign, no hemotympanum. No cervical spinal tenderness. MSK: No posterior calf tenderness bilaterally, homans sign negative bilaterally. Posterior tibialis and radial pulse +2 bilaterally. Sensation intact in upper and lower extremities. Full active ROM in upper and lower extremities, 5/5 s tregnth. Limitations: no limitations Course Vital Signs 06/15/19 22:45 Temperature 98.3 F Pulse Rate 85 Respiratory 20 Rate Blood Pressure 135/71 O2 Sat by Pulse 99 Oximetry Medical Decision Making - Medical Decision Making 39-year-old male patient with past history significant for anemia, status post hysterectomy presents to ED for acute complaints. Patient reports that she had some sharp abdominal pains earlier today which have since resolved. She also reports that when she is over a shower she spit up what appear to be some bright red blood. She does report that she was recently exposed to any illness by her children and was having waxing coughing for the last 10 days or so. Reports that she was previously having fevers but they've since resolved. Denies any other complaints at this time. Pt VSS, afebrile. Physical exam did not display acute pathology. The investigations were performed. UA displayed trace protein, +3 ketones, trace blood. HCG negative. Influenza negative. CXR negative. Patient denies any previous history of bleeding with exception of vaginal bleeding which is due to fibroids and patient very had hysterectomy. Patient will be discharged, follow-up with primary care provider and return to ER if worsens. Discussed with Dr. Hobson. - Lab Data Result diagrams: 06/15/19 23:34 06/15/19 23:34 Lab Results 06/15/19 06/15/19 06/15/19 Range/Units 23:34 23:34 23:34 WBC (3.8-10.6) k/uL RBC (3.80-5.40) m/uL Hgb (11.4-16.0) gm/dL Hct (34.0-46.0) % MCV (80.0-100.0) fL MCH (25.0-35.0) pg MCHC (31.0-37.0) g/dL RDW (11.5-15.5) % Plt Count (150-450) k/uL Neutrophils % % Lymphocytes % % Monocytes % % Eosinophils % % Basophils % % Neutrophils # (1.3-7.7) k/uL Lymphocytes # (1.0-4.8) k/uL Monocytes # (0-1.0) k/uL Eosinophils # (0-0.7) k/uL Basophils # (0-0.2) k/uL PT (9.0-12.0) sec INR (<1.2) APTT (22.0-30.0) sec Sodium (137-145) mmol/L Potassium (3.5-5.1) mmol/L Chloride (98-107) mmol/L Carbon Dioxide (22-30) mmol/L Anion Gap mmol/L BUN (7-17) mg/dL Creatinine (0.52-1.04) mg/dL Est GFR (CKD-EPI)AfAm (>60 ml/min/1.73 sqM) Est GFR (CKD-EPI)NonAf (>60 ml/min/1.73 sqM) Glucose (74-99) mg/dL Plasma Lactic Acid Justyn (0.7-2.0) mmol/L Calcium (8.4-10.2) mg/dL Total Bilirubin (0.2-1.3) mg/dL AST (14-36) U/L ALT (4-34) U/L Alkaline Phosphatase (38-126) U/L Total Protein (6.3-8.2) g/dL Albumin (3.5-5.0) g/dL Lipase (23-300) U/L Urine Color Yellow Urine Appearance Clear (Clear) Urine pH 6.0 (5.0-8.0) Ur Specific [place] 1.033 (1.001-1.035) Urine Protein Trace H (Negative) Urine Glucose (UA) Negative (Negative) Urine Ketones 3+ H (Negative) Urine Blood Trace H (Negative) Urine Nitrite Negative (Negative) Urine Bilirubin Negative (Negative) Urine Urobilinogen 2.0 (<2.0) mg/dL Ur Leukocyte Esterase Trace H (Negative) Urine RBC 3 (0-5) /hpf Urine WBC 1 (0-5) /hpf Ur Squamous Epith Cells 5 H (0-4) /hpf Urine Bacteria Occasional H (None) /hpf Urine Mucus Few H (None) /hpf Urine HCG, Qual Not Detected (Not Detectd) Influenza Type A RNA Not Detected (Not Detectd) Influenza Type B (PCR) Not Detected (Not Detectd) 06/15/19 06/15/19 06/15/19 Range/Units 23:34 23:34 23:34 WBC 6.6 (3.8-10.6) k/uL RBC 4.75 (3.80-5.40) m/uL Hgb 14.8 (11.4-16.0) gm/dL Hct 45.9 (34.0-46.0) % MCV 96.6 (80.0-100.0) fL MCH 31.2 (25.0-35.0) pg MCHC 32.3 (31.0-37.0) g/dL RDW 12.6 (11.5-15.5) % Plt Count 166 (150-450) k/uL Neutrophils % 75 % Lymphocytes % 17 % Monocytes % 4 % Eosinophils % 1 % Basophils % 2 % Neutrophils # 5.0 (1.3-7.7) k/uL Lymphocytes # 1.1 (1.0-4.8) k/uL Monocytes # 0.2 (0-1.0) k/uL Eosinophils # 0.1 (0-0.7) k/uL Basophils # 0.1 (0-0.2) k/uL PT (9.0-12.0) sec INR (<1.2) APTT (22.0-30.0) sec Sodium 141 (137-145) mmol/L Potassium 4.1 (3.5-5.1) mmol/L Chloride 104 (98-107) mmol/L Carbon Dioxide 24 (22-30) mmol/L Anion Gap 13 mmol/L BUN 21 H (7-17) mg/dL Creatinine 0.38 L (0.52-1.04) mg/dL Est GFR (CKD-EPI)AfAm >90 (>60 ml/min/1.73 sqM) Est GFR (CKD-EPI)NonAf >90 (>60 ml/min/1.73 sqM) Glucose 92 (74-99) mg/dL Plasma Lactic Acid Justyn 0.8 (0.7-2.0) mmol/L Calcium 9.1 (8.4-10.2) mg/dL Total Bilirubin 0.4 (0.2-1.3) mg/dL AST 35 (14-36) U/L ALT 37 H (4-34) U/L Alkaline Phosphatase 98 (38-126) U/L Total Protein 7.6 (6.3-8.2) g/dL Albumin 4.8 (3.5-5.0) g/dL Lipase 72 (23-300) U/L Urine Color Urine Appearance (Clear) Urine pH (5.0-8.0) Ur Specific [place] (1.001-1.035) Urine Protein (Negative) Urine Glucose (UA) (Negative) Urine Ketones (Negative) Urine Blood (Negative) Urine Nitrite (Negative) Urine Bilirubin (Negative) Urine Urobilinogen (<2.0) mg/dL Ur Leukocyte Esterase (Negative) Urine RBC (0-5) /hpf Urine WBC (0-5) /hpf Ur Squamous Epith Cells (0-4) /hpf Urine Bacteria (None) /hpf Urine Mucus (None) /hpf Urine HCG, Qual (Not Detectd) Influenza Type A RNA (Not Detectd) Influenza Type B (PCR) (Not Detectd) 06/15/19 Range/Units 23:34 WBC (3.8-10.6) k/uL RBC (3.80-5.40) m/uL Hgb (11.4-16.0) gm/dL Hct (34.0-46.0) % MCV (80.0-100.0) fL MCH (25.0-35.0) pg MCHC (31.0-37.0) g/dL RDW (11.5-15.5) % Plt Count (150-450) k/uL Neutrophils % % Lymphocytes % % Monocytes % % Eosinophils % % Basophils % % Neutrophils # (1.3-7.7) k/uL Lymphocytes # (1.0-4.8) k/uL Monocytes # (0-1.0) k/uL Eosinophils # (0-0.7) k/uL Basophils # (0-0.2) k/uL PT 10.1 (9.0-12.0) sec INR 1.0 (<1.2) APTT 25.9 (22.0-30.0) sec Sodium (137-145) mmol/L Potassium (3.5-5.1) mmol/L Chloride (98-107) mmol/L Carbon Dioxide (22-30) mmol/L Anion Gap mmol/L BUN (7-17) mg/dL Creatinine (0.52-1.04) mg/dL Est GFR (CKD-EPI)AfAm (>60 ml/min/1.73 sqM) Est GFR (CKD-EPI)NonAf (>60 ml/min/1.73 sqM) Glucose (74-99) mg/dL Plasma Lactic Acid Justyn (0.7-2.0) mmol/L Calcium (8.4-10.2) mg/dL Total Bilirubin (0.2-1.3) mg/dL AST (14-36) U/L ALT (4-34) U/L Alkaline Phosphatase (38-126) U/L Total Protein (6.3-8.2) g/dL Albumin (3.5-5.0) g/dL Lipase (23-300) U/L Urine Color Urine Appearance (Clear) Urine pH (5.0-8.0) Ur Specific [place] (1.001-1.035) Urine Protein (Negative) Urine Glucose (UA) (Negative) Urine Ketones (Negative) Urine Blood (Negative) Urine Nitrite (Negative) Urine Bilirubin (Negative) Urine Urobilinogen (<2.0) mg/dL Ur Leukocyte Esterase (Negative) Urine RBC (0-5) /hpf Urine WBC (0-5) /hpf Ur Squamous Epith Cells (0-4) /hpf Urine Bacteria (None) /hpf Urine Mucus (None) /hpf Urine HCG, Qual (Not Detectd) Influenza Type A RNA (Not Detectd) Influenza Type B (PCR) (Not Detectd) Disposition Clinical Impression: Abdominal pain Disposition: HOME SELF-CARE Condition: Stable Instructions (If sedation given, give patient instructions): Abdominal Pain (ED) Additional Instructions: Follow-up with primary care provider tomorrow, return to ER if condition worsens in any way. Is patient prescribed a controlled substance at d/c from ED?: No Referrals: Yanna Crane MD [Primary Care Provider] - 1-2 days
[2019-06-16 02:35] VITALS: BP 126/78; PULSE 90; RESP 18; TEMP 98.2
== END 2019-06-16 01:52 | disposition home or self-care (01) ==
LOC: EC 22:41
DX: R10.9 Unspecified abdominal pain (principal); R05 Cough; Z88.1 Allergy status to other antibiotic agents; Z91.018 Allergy to other foods; Z90.710 Acquired absence of both cervix and uterus
CPT/HCPCS: 36415; 71046; 80053; 81001; 81025; 83605; 83690; 85025; 85610; 85730; 87502; 96360; 99284